=== PATIENT | male | born 1965 | race Caucasian/White ===

== ENCOUNTER 2024-05-16 06:26 | Day surgery (SDC) | payer OTHER ==
[2024-05-16] VITALS (7 sets, daily range): BP systolic 147–159; BP diastolic 84–91; TEMP 96.8–97.3; O2SAT 92–95
[~2024-05-16] VITALS: Ht 177.8 cm; Wt 113.5 kg
[~2024-05-16 06:26] MED LIST: CYCL-707 PO; GABA-1172 PO; LOSA50TA5 PO; MONT10TA97 PO; NEXI20CA PO; SEMA1PEN2 SQ; SYMB80INH INH; VENTAER INH
[2024-05-16] MEDS ORDERED: HOME MED LIST COMPLETE! XX SCH (07:45)
[2024-05-16] MEDS ORDERED: ALBUTEROL 90 MCG/ACT 8GM HFA INHALER INH PRN (08:15)
[2024-05-16] MEDS ORDERED: ONDANSETRON 4MG 2ML VIAL IV PRN ×2 (08:15→12:10)
[2024-05-16] MEDS ORDERED: PERCOCET 5MG/325MG TAB PO PRN (08:15)
[2024-05-16] MEDS ORDERED: ACETAMINOPHEN 325 MG TAB PO PRN (08:15)
[2024-05-16] MEDS: NS (Normal Saline) 0.9% 500 ML IV SCH (08:15)
[2024-05-16] MEDS: ceFAZolin SOD 2 GM in IV 1 EA IV ONE (08:39)
[2024-05-16] MEDS ORDERED: propofoL 200 MG/20 ML VIAL As Ordered ONE (08:54)
[2024-05-16] MEDS ORDERED: ONDANSETRON 4MG 2ML VIAL As Ordered ONE (08:54)
[2024-05-16] MEDS ORDERED: MIDAZOLAM INJ 2MG/2ML VIAL As Ordered ONE (08:54)
[2024-05-16] MEDS ORDERED: ROCURONIUM BROMIDE 50MG/5ML VIAL As Ordered ONE (08:54)
[2024-05-16] MEDS ORDERED: ACETAMINOPHEN 1000MG/100ML IV BAG As Ordered ONE (08:54)
[2024-05-16] MEDS ORDERED: fentaNYL 250 MCG/5 ML INJECTION As Ordered ONE (08:54)
[2024-05-16] MEDS ORDERED: SUGAMMADEX SODIUM 500 MG/5 ML VIAL (BRIDION) As Ordered ONE (08:54)
[2024-05-16] MEDS ORDERED: LIDOCAINE 2% 100MG/5ML SDV (FOR ANES.) As Ordered ONE (08:54)
[2024-05-16] MEDS: HEPARIN SOD (PORCINE) 5000UNITS/ML 1ML VIAL/SYRINGE As Ordered ONE (09:04)
[2024-05-16] MEDS ORDERED: dexmedeTOMIDine (4MCG/ML)200MCG/50ML BTL (PRECEDEX) As Ordered ONE (09:21)
[2024-05-16] MEDS ORDERED: HYDROmorphone HCL 2MG/ML 1ML VIAL As Ordered ONE (11:04)
[2024-05-16] MEDS ORDERED: HYDROMORPHONE HCL 0.5 MG/ 0.5 ML SYRINGE IV PRN (12:10)
[2024-05-16] MEDS ORDERED: fentaNYL 100 MCG/2 ML INJECTION IV PRN (12:10)
[2024-05-16] MEDS ORDERED: oxyCODONE 5MG TAB PO PRN (12:10)
[2024-05-16] MEDS: NS (Normal Saline) 0.9% 1,000 ML IV SCH (12:10)
[2024-05-16] MEDS: LIDOCAINE 1% SDV 30ML VIAL As Ordered ONE (12:19)
[2024-05-16] MEDS: INSULIN LISPRO (NovoLOG) PER UNIT SC PRN ×2 (12:55→14:00)
[2024-05-16 13:14] LABS: HEMATOCRIT 45.3 % (42.0-52.0); HEMOGLOBIN 15.6 g/dl (13.5-17.5); MEAN CORPUSCULAR HEMOGLOBIN 30.9 pg (27.0-33.0); MEAN CORPUSCULAR HGB CONC 34.4 g/dl (32.0-36.5); MEAN CORPUSCULAR VOLUME 89.7 fl (80.0-96.0); PLATELET COUNT, AUTOMATED 202 10^3/uL (150-450); RED BLOOD COUNT 5.05 10^6/uL (4.30-6.10); WHITE BLOOD COUNT 9.6 10^3/uL (4.0-10.0)
[2024-05-16 13:33] LABS: BLOOD UREA NITROGEN 19 MG/DL (9-23); CALCIUM LEVEL 8.3 MG/DL (8.3-10.6); CARBON DIOXIDE LEVEL 25 MMOL/L (20-31); CHLORIDE LEVEL 103 MMOL/L (98-107); CREATININE FOR GFR 0.92 MG/DL (0.70-1.30); GLOMERULAR FILTRATION RATE > 60.0 (>49); GLUCOSE, FASTING 173 MG/DL (74-106); POTASSIUM SERUM 5.8 MMOL/L (3.5-5.1); SODIUM LEVEL 138 MMOL/L (136-145)
[2024-05-16] MEDS: ceFAZolin SOD 1 GM in DEXTROSE 5% (D5W) ADV/MINI-BAG 50 ML IV SCH (16:59)
[2024-05-16] MEDS: PERCOCET 5MG/325MG TAB PO PRN (18:51)
[2024-05-16] MEDS: SYMBICORT 80/4.5MCG INHALER 6GM INH SCH (19:39)
[2024-05-16] MEDS: MONTELUKAST 10 MG TAB PO SCH (20:48)
[2024-05-16] MEDS: DOCUSATE SODIUM 100MG CAPSULE PO SCH (20:48)
[2024-05-16] MEDS: HEPARIN SOD (PORCINE) 5000UNITS/ML 1ML VIAL/SYRINGE SC SCH (20:48)
[2024-05-17] VITALS: BP 150/84; TEMP 97.7; O2SAT 93
[2024-05-17 04:00] VITALS: BP 149/85; TEMP 97.3; O2SAT 93
[2024-05-17 06:06] LABS: HEMATOCRIT 41.6 % (42.0-52.0); HEMOGLOBIN 14.2 g/dl (13.5-17.5); MEAN CORPUSCULAR HEMOGLOBIN 30.3 pg (27.0-33.0); MEAN CORPUSCULAR HGB CONC 34.1 g/dl (32.0-36.5); MEAN CORPUSCULAR VOLUME 88.9 fl (80.0-96.0); PLATELET COUNT, AUTOMATED 198 10^3/uL (150-450); RED BLOOD COUNT 4.68 10^6/uL (4.30-6.10); WHITE BLOOD COUNT 12.3 10^3/uL (4.0-10.0)
[2024-05-17 06:28] LABS: BLOOD UREA NITROGEN 16 MG/DL (9-23); CALCIUM LEVEL 8.9 MG/DL (8.3-10.6); CARBON DIOXIDE LEVEL 28 MMOL/L (20-31); CHLORIDE LEVEL 104 MMOL/L (98-107); CREATININE FOR GFR 0.74 MG/DL (0.70-1.30); GLOMERULAR FILTRATION RATE > 60.0 (>49); GLUCOSE, FASTING 149 MG/DL (74-106); POTASSIUM SERUM 4.3 MMOL/L (3.5-5.1); SODIUM LEVEL 139 MMOL/L (136-145)
[2024-05-17 07:59] VITALS: BP 141/87
[2024-05-17] MEDS: LOSARTAN 50MG TABLET PO SCH (07:59)
[2024-05-17 08:00] VITALS: BP 141/87; TEMP 97.7; O2SAT 94
[2024-05-17] MEDS: hydroCHLOROthiazide 12.5 MG CAPSULE PO SCH (08:00)
[2024-05-17] MEDS: OMEPRAZOLE 20MG CAP PO SCH (08:00)
[2024-05-17 10:10] VITALS: O2SAT 92
[2024-05-17] MEDS ORDERED: PERCOCET PO (10:12)
[2024-05-17] MEDS ORDERED: COLA100C5 PO (10:12)
[2024-05-17] MEDS ORDERED: CIPR-249 PO (10:12)
[2024-05-17 12:00] VITALS: BP 117/76; TEMP 97.5; O2SAT 92
== END 2024-05-17 13:59 | disposition home or self-care (01) ==
LOC: M SDC 06:26 → UNDOADMIN 06:26 → M OR 06:26 → EDSTATUS 13:30 → M MSPAV 14:20 → M OR 14:20 → UNDODISIN 05-17 13:59 → M SDC 05-17 13:59
PROVIDERS: ATTEND Urology
DX: C61 Malignant neoplasm of prostate (principal); E11.9 Type 2 diabetes mellitus without complications; Z91.030 Bee allergy status; Z79.899 Other long term (current) drug therapy; Z79.85 Long-term (current) use of injectable non-insulin antidiabetic drugs
CPT/HCPCS: 36415; 55866; 80048; 85027; 86850; 86900; 86901; 88309; 94640; 96365; 96366; 96372; 96376; J0131; J0665; J0690; J1100; J1171; J2250; J2405; J3010